=== PATIENT | male | born 1955 | race Caucasian/White ===

== ENCOUNTER → 2020-07-12 00:59 | Outpatient (CLI) | payer BC, SELFPAY ==
[2020-07-13 00:21] LABS: SARS-CoV-2 RNA PCR Negative
== END ==
PROVIDERS: PCP Physician Assistant; Visit Provider Surgery
DX: Z01.812 Encounter for preprocedural laboratory examination (principal); Z20.822 Contact with and (suspected) exposure to COVID-19
CPT/HCPCS: C9803; U0003; U0005

== ENCOUNTER 2020-07-14 11:29 | Outpatient (CLI) | payer BC, SELFPAY ==
--- NOTE | 2020-07-14 11:30 | ECG_ITS ---
Measurements Intervals Premium Rate: 53 P: 63 ND: 179 QRS: 66 QRSD: 105 T: 30 QT: 397 QTc: 376 Interpretive Statements SINUS BRADYCARDIA DELAYED PRECORDIAL R/S TRANSITION MINIMAL Q WAVES- INFERIOR LEADS BASELINE ARTIFACT- I, II, AVR, AVL, AVF, V3-V4, V6 BORDERLINE ECG Electronically Signed On 07-14-2020 11:53:32 NEW BUSINESS CLERK by Meir Bates D.O.
== END 2020-07-14 11:30 | disposition home or self-care (01) ==
LOC: ANHSURGERY 11:30
PROVIDERS: PCP Physician Assistant; Visit Provider Surgery
DX: Z01.818 Encounter for other preprocedural examination (principal); K40.90 Unilateral inguinal hernia, without obstruction or gangrene, not specified as recurrent; I10 Essential (primary) hypertension
CPT/HCPCS: 36415; 86850; 86900; 86901; 93005

== ENCOUNTER 2020-07-16 00:22 | Day surgery (SDC) | payer BC, SELFPAY ==
[2020-07-11 17:28] VITALS: BMI 22.3
--- NOTE | 2020-07-15 13:18 | WPDANESEPPF ---
Anes - Initial Pre Proc Eval Procedure: Operation Date: 07/16/20 07:30 Proposed Procedures p Laparoscopic Right Inguinal Hernia Repair With Mesh, Davinci Assisted - Rc Santa DO s Umbilical Hernia Repair - Rc Santa DO Date/Time: 07/15/20 13:18 Surgeon: Rc Santa DO Pre Op Diagnosis: Right Inguinal Hernia, Umbilical Hernia Patient Data Age: 65 Gender: M Height: 5 ft 11 in Weight: 72.57 kg Allergies Allergy/AdvReac Type Severity Reaction Status Date / Time No Known Allergies Allergy Verified 07/16/20 06:46 Home Medications Medication Instructions Recorded Confirmed Type lisinopril 20 mg tablet 20 mg PO DAILY #90 tablet 04/21/20 07/16/20 Rx Patient hx anesthesia problems: none Family hx anesthesia problems: none PMFSH Past Medical History Medical History Colon polyps Fatty liver Hypertension Prediabetes Skin lesion (~02/17/16) left shoulder- Surgical History Surgical History Hx of colonoscopy 04/2017- every 5 years Family History Family History Mother Hypertension Pancreatic cancer Father Non-Hodgkin lymphoma Social History Social History Smoking status: Never smoker Second hand tobacco smoke exposure: No Additional smoking assessment comments: smoke around patient 10 years ago Alcohol intake: current Substance use: never Substance use type: does not use Living arrangements: with family Additional occupation/education comments: [employer] Gender identity (if verbalized by the patient): Male Spiritual care concerns: No Anes - Eval Final PreProcedure Day of Procedure 07/15/20 13:18 Patient weight: normal Lungs: clear to auscultation Airway: Mallampati scale class II Neurological: alert and oriented Last oral intake: >/= 8 hours ASA classification: III Emergent: no Anesthetic plan: proceed Anesthesia type and monitoring: general ETT and standard monitoring Informed Consent: The patient's anesthetic plan and its attendant risks and benefits were discussed with the patient/family/POA. Questions were solicited and answers provided to the satisfaction of the patient/family/POA.
[2020-07-16] VITALS (10 sets, daily range): BP systolic 116–150; BP diastolic 68–91; PULSE 55–78; RESP 7–20; TEMP 36.3; O2SAT 98–100
[2020-07-16] MEDS: KETOROLAC 15 MG/ML VIAL (*BKC) IV PUSH (06:25)
[2020-07-16] MEDS: LACTATED RINGERS 1,000 ML 30 ML IV CONT ×2 (06:25→09:15)
[2020-07-16] MEDS: ACETAMINOPHEN 500 MG TABLET 1000 MG PO (06:30)
--- NOTE | 2020-07-16 07:13 | PM.IMHP ---
H&P: HPI History of Present Illness Date/Time: 07/16/20 07:13 Chief Complaint: RIH, umbilical hernia Narrative: Jhon Almanza is a 65 year old male presents for right inguinal and umbilical hernia repairs. No change since last seen in office. Review of Systems Review of Systems: All systems reviewed & are unremarkable except as noted in HPI and below Constitutional: Constitutional: Denies chills, Denies fever(s), Denies headache(s) and Denies weight loss Eyes: Eyes: Denies change in vision ENT: Denies dizziness, Denies headache(s), Denies neck mass and Denies throat swelling Cardiovascular: Cardiovascular: Denies chest pain, Denies lightheadedness and Denies dyspnea Respiratory: Respiratory: Denies cough, Denies dyspnea and Denies wheezing Gastrointestinal: Gastrointestinal: Denies abdominal pain, Denies change in bowel habits, Denies nausea and Denies vomiting Genitourinary: Genitourinary: Denies hematuria and Denies dysuria Musculoskeletal: Musculoskeletal: Reports as per HPI Integumentary/Breasts: Skin/Breast: Reports as per HPI Neurologic: Denies dizziness and Denies headache(s) Allergic/Immunologic: Allergic/Immunologic: Denies throat swelling and Denies wheezing PMFSH Past Medical History Medical History Colon polyps Fatty liver Hypertension Prediabetes Skin lesion (~02/17/16) left shoulder- Surgical History Surgical History Hx of colonoscopy 04/2017- every 5 years Family History Family History Mother Hypertension Pancreatic cancer Father Non-Hodgkin lymphoma Social History Social History Smoking status: Never smoker Second hand tobacco smoke exposure: No Additional smoking assessment comments: smoke around patient 10 years ago Alcohol intake: current Substance use: never Substance use type: does not use Living arrangements: with family Additional occupation/education comments: [employer] Gender identity (if verbalized by the patient): Male Spiritual care concerns: No Meds Home Medications and Allergies Home Medications Medication Instructions Recorded Confirmed Type lisinopril 20 mg tablet 20 mg PO DAILY #90 tablet 04/21/20 07/16/20 Rx Allergies Allergy/AdvReac Type Severity Reaction Status Date / Time No Known Allergies Allergy Verified 07/16/20 06:46 Vital Signs Vital Signs - 24 hr 07/16/20 06:47 Pulse Rate 61 Respiratory Rate 18 Blood Pressure 130/75 Pulse Oximetry 100 Exam Const: General: no acute distress and alert Orientation/consciousness: patient oriented x3 HENMT: Head: normocephalic and atraumatic Ears: hearing grossly normal bilaterally General nose exam: Normal nares present Mouth: Yes Normal oral and palatal mucosa present Eyes: Periorbital: periorbital findings normal Sclera: sclerae normal EOM: EOMs intact bilaterally Neck: Neck: normal visual inspection, no lymphadenopathy and trachea midline Chest: Chest palpation & inspection: normal inspection of the chest Resp: Effort & Inspection: normal respiratory effort Auscultation: clear to auscultation bilaterally Cardio: Jugular venous distension: no JVD Rate: regular rate Rhythm: regular rhythm Heart sounds: S1 normal heart sound present and S2 normal heart sound present Peripheral pulses: Peripheral pulses 2+ throughout GI: Inspection: normal to inspection GI Palp: Yes Soft to palpation, No Tenderness to palpation present (GI), No Guarding due to palpation present (GI), Yes Hernia present (umbilical) and No Rebound tenderness present Percussion: Yes normal to percussion Auscultation: normal bowel sounds : General: Yes no CVA tenderness Scrotum: inguinal hernia on the right Back/Spine/Pelvis: Back: no CVA tenderness Christie
--- NOTE | 2020-07-16 07:15 | WPDHPUPDATE1 ---
History and Physical Update Update Date/Time: 07/16/20 07:15 History and Physical has been reviewed, including an updated exam of the patient. There are NO changes in the patient's condition. Risks, benefits, and alternatives have been discussed and questions answered. Patient agrees to proceed with procedure.
[2020-07-16] MEDS: ceFAZolin 2 GM/D5W 50 ML 2 GM/50 ML BAG IVPB (07:25)
[2020-07-16] MEDS: BUPIVACAINE/EPINEPHRINE 0.5% 30 ML VIAL INFILTRATE (07:55)
--- NOTE | 2020-07-16 08:26 | SUR.OPER ---
PROGRIP MESH [id number], EXP 02-03-2023, LOT [id number] RIGHT INGUINAL
--- NOTE | 2020-07-16 09:13 | PM.PROC ---
Procedure Note - Detailed Date of procedure: 07/16/20 Pre-op diagnosis: Right Inguinal Hernia, Umbilical Hernia Post-op diagnosis: same (Indirect RIH, umbilical hernia) Procedure performed: Laparoscopic right inguinal hernia repair with Progrip mesh, da Lupe assisted Description of procedure: Procedure as well as risks, benefits, and alternatives were discussed with the patient. Written consent was obtained and placed in chart prior to procedure. Patient was brought back to surgical suite. He was placed supine on operating table. Time-out was done to confirm patient and procedure. He was then intubated by Anesthesia Department. His abdomen was prepped and draped in sterile fashion using chlorhexidine prep. 0.5% bupivacaine with epinephrine was infiltrated at each location for incision. A 12 millimeter transverse incision was made just superior to the umbilicus using a 15 blade scalpel. Blunt dissection was carried out down to the linea alba. Hernia sac was identified and carefully dissected free and excised. The preperitoneal fat within the hernia sac was also excised and discarded. This allowed us to enter into the peritoneal cavity through the umbilical hernia. A 12 millimeter trocar was inserted and carbon dioxide insufflation was used to create a pneumoperitoneum. A camera was inserted and the abdominal cavity was inspected. The patient was placed in slight Trendelenburg position. An 8 millimeter incision was made on the right lateral abdomen and an 8 millimeter trocar was inserted under direct visualization. Another 8 millimeter incision was made in the left lateral abdomen and an 8 millimeter trocar was inserted under direct visualization. The robotic arms were brought up to the patient's bedside and secured to the ports. The camera and instruments were inserted. I then moved over to the robotic console and took control of the camera and instruments. After careful inspection of the abdominal cavity, I began scoring the peritoneum along the right lower quadrant using scissors with electrocautery. The preperitoneal plane was entered and this was carefully dissected caudally along the inferior epigastric vessels. Careful dissection with scissors with electrocautery and blunt dissection was used to continue this dissection. I dissected far enough laterally to allow for mesh placement, and also dissected medially to identify the pubic arch and Jacques's ligament. The hernia sac was identified and carefully dissected posteriorly. The cord contents were also identified and the peritoneum was carefully dissected far enough posteriorly to allow for mesh placement. Once an adequate pocket was created, I then placed the mesh within the preperitoneal pocket and carefully unfolded it. The mesh was centered on the hernia defect with adequate overlap circumferentially. The inferior edge of the mesh was inspected to ensure that it was far enough away from the peritoneal edge. The mesh appeared in proper position overlying the entire myopectineal orifice. The peritoneum was then closed over the mesh using a 3-0 V-lock running absorbable suture. The robotic instruments were removed. The robotic arms were disengaged from the ports and moved away from the bedside. The patient was flattened out in bed, the ports were removed under direct visualization, and the pneumoperitoneum was released. The fascia of the umbilical hernia was then reapproximated using 0 Ethibond [id number] sutures. A total of 3 sutures were placed transversely and tied down. The repair was inspected and appeared secure. The skin of the incisions was approximated using 4-0 Monocryl subcuticular suture, and Exofin glue was applied on top. The patient was awakened from anesthesia, extubated, and transferred to recovery. Implants: Progrip Mesh 10cm x 15cm Anesthesia: GETA and local (0.5% bupivicaine with epi) Surgeon: Rc Santa DO Estimated blood loss (mL): 5 Drains: No Pac
--- NOTE | 2020-07-16 12:42 | SUR.PHASEII ---
Patient is dressed and waiting for ride at this time.
== END 2020-07-16 12:50 | disposition home or self-care (01) ==
PROVIDERS: PCP Physician Assistant; Visit Provider Surgery
PROC: 8E0Y4CZ Robotic Assisted Procedure of Lower Extremity, Percutaneous Endoscopic Approach (ICD-10-PCS; CPT 49650; principal; 2020-07-16 07:30)
PROC: (CPT 49650; 2020-07-16 07:30)
DX: K40.90 Unilateral inguinal hernia, without obstruction or gangrene, not specified as recurrent (principal); K42.9 Umbilical hernia without obstruction or gangrene; I10 Essential (primary) hypertension; K76.0 Fatty (change of) liver, not elsewhere classified; R73.03 Prediabetes
CPT/HCPCS: 49650; S2900; A9270; C1781; J0690; J1100; J1170; J1885; J2250; J2405; J2704; J2710; J3010; J7030; J7120

== ENCOUNTER → 2021-07-30 10:30 | Outpatient (CLI) | payer MEDICARE, SELFPAY ==
--- NOTE | ~2021-07-30 | XR_ITS ---
XR foot RT min 3V DATE: 07/30/2021 10:58 INDICATION: Right foot pain, plantar aspect, proximal fourth toe. No injury TECHNIQUE: 4 views COMPARISON: None FINDINGS: There is severe osteoarthritic change and prominent spurring at the first metatarsophalange al joint. No fracture, dislocation, periosteal reaction or bone destruction. Anterior and posterior tibial artery calcifications. 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 ER OPERATOR AUTOMATIC
--- NOTE | ~2021-07-30 | XR_ITS ---
XR hand LT min 3V DATE: 07/30/2021 10:58 INDICATION: Left hand pain. Third digit injury one year ago. TECHNIQUE: 4 views COMPARISON: None FINDINGS: There is prominent osteophytic change at the second and third metacarpophalangeal joints. There is osteoarthritic changes of the interphalangeal joints. No fracture, dislocation, periosteal reaction or bone destruction. Prominent arterial calcification of the distal forearm. IMPRESSION: Polyarticular osteoarthritis. Reviewed, dictated and finalized at location A. RUCTIONAL DESIGN SPECIALIST
== END ==
PROVIDERS: PCP Family Medicine; Visit Provider Family Medicine
DX: M79.671 Pain in right foot (principal); M79.642 Pain in left hand; M19.071 Primary osteoarthritis, right ankle and foot; I70.208 Unspecified atherosclerosis of native arteries of extremities, other extremity; M19.042 Primary osteoarthritis, left hand
CPT/HCPCS: 73130; 73630

== ENCOUNTER 2022-08-09 08:10 | Outpatient (CLI) | payer MEDICARE, SELFPAY ==
[2022-08-09 20:45] LABS: Alanine Aminotransferase 71 U/L (6-50); Albumin Level 3.9 g/dL (3.5-5.1); Alkaline Phosphatase 50 U/L (38-126); Anion Gap 7 mmol/L (8-16); Aspartate Amino Transferase 57 U/L (17-59); Bilirubin,Total 0.9 mg/dL (0.2-1.3); Blood Urea Nitrogen 14 mg/dL (9-20); Calcium 8.2 mg/dL (8.4-10.2); Carbon Dioxide 27 mmol/L (22-30); Chloride 99 mmol/L (98-107); Cholesterol 141 mg/dL (0-200); Estimated Glomerular Filt Rate > 60; Glucose 94 mg/dL (65-110); HDL Direct 99 mg/dL; Potassium 3.9 mmol/L (3.4-5.0); Sodium 133 mmol/L (137-145); Triglycerides < 30 mg/dL (<150)
[2022-08-09 21:00] LABS: Hemoglobin A1C 5.9 % (<5.7)
[2022-08-09 21:14] LABS: Prostate Specific Antigen 1.2 ng/mL (< OR = 4.0)
[2022-08-09 21:58] LABS: LDL Cholesterol Direct < 30 mg/dL
== END 2022-08-09 08:11 | disposition home or self-care (01) ==
LOC: ANHGOSHLAB 08:11
PROVIDERS: PCP Family Medicine; Visit Provider Family Medicine
DX: R73.03 Prediabetes (principal); I10 Essential (primary) hypertension; Z13.220 Encounter for screening for lipoid disorders; Z12.5 Encounter for screening for malignant neoplasm of prostate; Z13.228 Encounter for screening for other metabolic disorders
CPT/HCPCS: 36415; 80053; 80061; 83036; 84153; G0103

== ENCOUNTER 2023-05-23 06:28 | Day surgery (SDC) | payer MEDICARE, SELFPAY ==
--- NOTE | 2023-05-20 14:56 | PM.HPGS ---
History of Present Illness History of Present Illness Consent: Risks, benefits, and alternatives have been discussed and questions answered. Patient agrees to proceed with procedure. Chief complaint: History of Colon Polyps Narrative: Jhon Almanza is a 68 year old male Here for colon cancer screening. He has had polyps removed at time his last 2 procedures, most recently 6 years ago. Review of Systems Review of Systems: All systems reviewed & are unremarkable except as noted in HPI and below PMFSH Past Medical History Medical History Colon polyps Fatty liver Hypertension Prediabetes Skin lesion (~02/17/16) left shoulder- Surgical History Surgical History H/O inguinal hernia repair 07/16/20 Laparoscopic right inguinal hernia repair with Progrip mesh, da Lupe assisted Hx of colonoscopy 04/2017- every 5 years Family History Family History Mother Hypertension Pancreatic cancer Thyroid disorder Father Non-Hodgkin lymphoma Sibling Diabetes mellitus Hypertension Thyroid disorder Social History Social History Smoking status: Never smoker Second hand tobacco smoke exposure: No Additional smoking assessment comments: smoke around patient 10 years ago Alcohol intake: current Drinks per week: 21 Alcohol use details: 3 beers daily Substance use: never Substance use type: does not use Lack of Transportation: No Lack of Food: Never True Current Housing: I Have Housing Concerned About Future Housing: No Difficulty Paying Gas/Electric Bills: No Difficulty Paying for Meds: No Currently Unemployed: No Education: Bachelor's Degree Difficulty w/ Childcare or Family Care: No Living arrangements: with family Occupation/Education: retired Additional occupation/education comments: [employer] Gender identity (if verbalized by the patient): Male Sexual Orientation (if Verbalized by the Patient): Straight or Heterosexual Spiritual care concerns: No Meds Home Medications and Allergies Home Medications Medication Instructions Recorded Confirmed Type metronidazole 0.75 % topical gel 1 applic topical DAILY 08/06/22 05/04/23 History lisinopril 20 mg tablet 20 mg PO DAILY #90 tabs 04/07/23 05/23/23 Rx Allergies Allergy/AdvReac Type Severity Reaction Status Date / Time No Known Allergies Allergy Verified 05/23/23 07:07 Exam Resp: Auscultation: clear to auscultation bilaterally Cardio: Rate: regular rate Rhythm: regular rhythm GI: GI Palp: Yes Soft to palpation and No Tenderness to palpation present (GI) Assessment and Plan Assessment and plan (1) Colon cancer screening: Code(s): Z12.11 - Encounter for screening for malignant neoplasm of colon Status: Acute Assessment and Plan: Colonoscopy with possible biopsy or polypectomy or cautery or injection of substances.
--- NOTE | 2023-05-23 06:44 | P.PNAN_ITS ---
Anes - Initial Pre Proc Eval Procedure: Operation Date: 05/23/23 08:30 Proposed Procedures p Colonoscopy - Willie Bacon MD Date/Time: 05/23/23 06:44 Surgeon: Willie Bacon MD Pre Op Diagnosis: History of Colon Polyps Patient Data Age: 68 Gender: M Height: 1.8 m Weight: 75.2 kg Allergies Allergy/AdvReac Type Severity Reaction Status Date / Time No Known Allergies Allergy Verified 05/23/23 07:07 Home Medications Medication Instructions Recorded Confirmed Type metronidazole 0.75 % topical gel 1 applic topical DAILY 08/06/22 05/04/23 History lisinopril 20 mg tablet 20 mg PO DAILY #90 tabs 04/07/23 05/23/23 Rx Patient hx anesthesia problems: none Family hx anesthesia problems: none Results Review: All pre-operative results and documents have been reviewed as part of the pre- operative evaluation. [facility] Past Medical History Medical History Colon polyps Fatty liver Hypertension Prediabetes Skin lesion (~02/17/16) left shoulder- Surgical History Surgical History H/O inguinal hernia repair 07/16/20 Laparoscopic right inguinal hernia repair with Progrip mesh, da Lupe assisted Hx of colonoscopy 04/2017- every 5 years Family History Family History Mother Hypertension Pancreatic cancer Thyroid disorder Father Non-Hodgkin lymphoma Sibling Diabetes mellitus Hypertension Thyroid disorder Social History Social History Smoking status: Never smoker Second hand tobacco smoke exposure: No Additional smoking assessment comments: smoke around patient 10 years ago Alcohol intake: current Drinks per week: 21 Alcohol use details: 3 beers daily Substance use: never Substance use type: does not use Lack of Transportation: No Lack of Food: Never True Current Housing: I Have Housing Concerned About Future Housing: No Difficulty Paying Gas/Electric Bills: No Difficulty Paying for Meds: No Currently Unemployed: No Education: Bachelor's Degree Difficulty w/ Childcare or Family Care: No Living arrangements: with family Occupation/Education: retired Additional occupation/education comments: [employer] Gender identity (if verbalized by the patient): Male Sexual Orientation (if Verbalized by the Patient): Straight or Heterosexual Spiritual care concerns: No Anes - Eval Final PreProcedure Day of Procedure 05/23/23 06:44 Patient weight: normal Heart: regular rate and rhythm Lungs: clear to auscultation and normal air movement Airway: Mallampati scale class II Neurological: alert and oriented Last oral intake: >/= 8 hours ASA classification: III Emergent: no Anesthetic plan: proceed Anesthesia type and monitoring: general GIVS and standard monitoring Results Review: All pre-operative results and documents have been reviewed as part of the pre- operative evaluation. Informed Consent: The patient's anesthetic plan and its attendant risks and benefits were discussed with the patient/family/POA. Questions were solicited and answers provided to the satisfaction of the patient/family/POA.
[2023-05-23 07:08] VITALS: BP 140/78; PULSE 71; RESP 16; TEMP 37.1; O2SAT 100; BMI 23.6
[2023-05-23] MEDS: LACTATED RINGERS 1,000 ML 150 ML IV CONT (07:20)
[2023-05-23 08:38] VITALS: BP 108/74; PULSE 60; RESP 16; O2SAT 98
[2023-05-23 08:48] VITALS: BP 115/72; PULSE 74; RESP 18; O2SAT 99
[2023-05-23 08:58] VITALS: BP 125/60; PULSE 69; RESP 18; O2SAT 99
--- NOTE | 2023-05-23 11:13 | WPDANESPN ---
Anes - Prog Note Post-Op Date/Time: 05/23/23 11:13 Cardiovascular status: normal Respiratory status: normal Airway patency: baseline Mental status: baseline Post-Op hydration status: normal Vital Signs: Last Vital Signs Temp 37.1 C 05/23/23 07:08 Pulse 69 05/23/23 08:58 Resp 18 05/23/23 08:58 BP 125/60 05/23/23 08:58 Pulse Ox 99 05/23/23 08:58 O2 Del Method Room Air 05/23/23 08:58 Pain Score (VAS): 0 I/O: Intake & Output 05/22/23 05/23/23 05/23/23 23:59 07:59 15:59 Intake Total 400 Balance 400 Post-procedural complaints: none Patient Feedback: Patient satisfied with anesthetic care. Other Findings: Patient vital signs back to baseline. Patient denies nausea and vomiting. Patient's pain under control. Patient OK for discharge.
== END 2023-05-23 09:11 | disposition home or self-care (01) ==
PROVIDERS: PCP Family Medicine; Visit Provider Internal Medicine Gastroenterology
PROC: 0DJD8ZZ Inspection of Lower Intestinal Tract, Via Natural or Artificial Opening Endoscopic (ICD-10-PCS; CPT 45378; principal; 2023-05-23 08:30)
DX: Z12.11 Encounter for screening for malignant neoplasm of colon (principal); D12.5 Benign neoplasm of sigmoid colon; D12.4 Benign neoplasm of descending colon; K57.30 Diverticulosis of large intestine without perforation or abscess without bleeding; K62.1 Rectal polyp
CPT/HCPCS: 45385; 45380

== ENCOUNTER 2023-05-23 07:00 | Outpatient (NON) | payer MEDICARE, SELFPAY | END 2023-05-23 07:01 | disposition home or self-care (01) | PROVIDERS: PCP Family Medicine; Visit Provider Internal Medicine Gastroenterology | DX: Z12.11 Encounter for screening for malignant neoplasm of colon (principal); D12.5 Benign neoplasm of sigmoid colon; D12.4 Benign neoplasm of descending colon; K62.1 Rectal polyp | CPT/HCPCS: 88305 ==

== ENCOUNTER 2023-08-12 10:01 | Outpatient (CLI) | payer MEDICARE, SELFPAY ==
[2023-08-12 13:07] LABS: Alanine Aminotransferase 81 U/L (6-50); Albumin Level 3.7 g/dL (3.5-5.1); Alkaline Phosphatase 46 U/L (38-126); Anion Gap 1 mmol/L (8-16); Aspartate Amino Transferase 75 U/L (17-59); Blood Urea Nitrogen 12 mg/dL (9-20); Calcium 8.8 mg/dL (8.4-10.2); Carbon Dioxide 32 mmol/L (22-30); Chloride 101 mmol/L (98-107); Cholesterol 139 mg/dL (0-200); Estimated Glomerular Filt Rate > 60; Glucose 129 mg/dL (65-110); HDL Direct 103 mg/dL; Potassium 4.2 mmol/L (3.4-5.0); Sodium 134 mmol/L (137-145); Triglycerides < 30 mg/dL (<150)
[2023-08-12 13:18] LABS: LDL Cholesterol Direct 36 mg/dL
[2023-08-12 13:31] LABS: Prostate Specific Antigen 1.5 ng/mL (< OR = 4.0)
[2023-08-12 14:03] LABS: Hemoglobin A1C 6.5 % (<5.7)
== END 2023-08-12 10:02 | disposition home or self-care (01) ==
LOC: ANHGOSHLAB 10:02
PROVIDERS: PCP Family Medicine; Visit Provider Family Medicine
DX: Z12.5 Encounter for screening for malignant neoplasm of prostate (principal); I10 Essential (primary) hypertension; R73.03 Prediabetes; Z13.220 Encounter for screening for lipoid disorders; Z13.228 Encounter for screening for other metabolic disorders
CPT/HCPCS: 36415; 80053; 80061; 83036; 84153; G0103

== ENCOUNTER 2023-11-14 08:11 | Outpatient (CLI) | payer MEDICARE, SELFPAY ==
[2023-11-14 17:07] LABS: Alanine Aminotransferase 58 U/L (6-50); Albumin Level 3.4 g/dL (3.5-5.1); Alkaline Phosphatase 43 U/L (38-126); Anion Gap 3 mmol/L (4-12); Aspartate Amino Transferase 64 U/L (17-59); Bilirubin,Total 0.8 mg/dL (0.2-1.3); Blood Urea Nitrogen 17 mg/dL (9-20); Calcium 8.6 mg/dL (8.4-10.2); Carbon Dioxide 27 mmol/L (22-30); Chloride 105 mmol/L (98-107); Estimated Glomerular Filt Rate > 60; Glucose 89 mg/dL (65-110); Potassium 4.1 mmol/L (3.4-5.0); Sodium 135 mmol/L (137-145)
[2023-11-14 21:13] LABS: Hemoglobin A1C 5.6 % (<5.7)
== END 2023-11-14 08:12 | disposition home or self-care (01) ==
LOC: ANHGOSHLAB 08:12
PROVIDERS: PCP Family Medicine; Visit Provider Family Medicine
DX: E11.9 Type 2 diabetes mellitus without complications (principal); Z13.228 Encounter for screening for other metabolic disorders
CPT/HCPCS: 36415; 80053; 83036

== ENCOUNTER 2024-03-01 08:11 | Outpatient (CLI) | payer MEDICARE, SELFPAY ==
[2024-03-01 16:46] LABS: Alanine Aminotransferase 57 U/L (6-50); Albumin Level 3.7 g/dL (3.5-5.1); Alkaline Phosphatase 39 U/L (38-126); Anion Gap 5 mmol/L (4-12); Aspartate Amino Transferase 63 U/L (17-59); Blood Urea Nitrogen 14 mg/dL (9-20); Calcium 8.4 mg/dL (8.4-10.2); Carbon Dioxide 29 mmol/L (22-30); Chloride 99 mmol/L (98-107); Estimated Glomerular Filt Rate > 60; Glucose 100 mg/dL (65-110); Potassium 3.9 mmol/L (3.4-5.0); Sodium 133 mmol/L (137-145)
== END 2024-03-01 08:12 | disposition home or self-care (01) ==
LOC: ANHGOSHLAB 08:12
PROVIDERS: PCP Family Medicine; Visit Provider Family Medicine
DX: K76.0 Fatty (change of) liver, not elsewhere classified (principal); I10 Essential (primary) hypertension; Z13.228 Encounter for screening for other metabolic disorders
CPT/HCPCS: 36415; 80053

== ENCOUNTER 2024-03-09 08:45 | Outpatient (CLI) | payer MEDICARE, SELFPAY ==
--- NOTE | ~2024-03-09 | US_ITS ---
Limited Abdominal Sonogram: Real-time sonographic imaging of the right upper quadrant was performed. Clinical History: Fatty liver Findings: The liver appears normal with no evidence of mass lesion or bile duct dilatation. Main por margarito vein demonstrates normal direction of flow. The gallbladder is well distended, and contains small amount of sludge. The common bile duct measures 4 mm. The visualized pancreas, aorta, and IVC are u nremarkable. Impression: Small amount of gallbladder sludge. Reviewed, dictated and finalized at location M. Impression: Small amount of gallbladder sludge.
== END 2024-03-09 08:46 | disposition home or self-care (01) ==
LOC: GOSHIMG 08:46
PROVIDERS: PCP Family Medicine; Visit Provider Family Medicine
DX: K76.0 Fatty (change of) liver, not elsewhere classified (principal)
CPT/HCPCS: 76705

== ENCOUNTER 2024-09-03 08:17 | Outpatient (CLI) | payer MEDICARE, SELFPAY ==
[2024-09-03 13:42] LABS: Basophils Percent Auto 0.5 % (0.2-1.2); Eosinophils Absolute Auto 0.2 K/mm3 (0-0.3); Eosinophils Percent Auto 2.9 % (0-4.4); Hematocrit 46.1 % (42.0-52.0); Hemoglobin 15.8 g/dL (14.0-18.0); Immature Granulocyte Absolute 0.02 K/mm3 (0.00-0.031); Immature Granulocyte Percent A 0.3 % (0-0.5); Lymphocytes Absolute Auto 0.65 K/mm3 (0.9-3.2); Lymphocytes Percent Auto 11.1 % (18.3-44.2); Mean Corpuscular HGB Conc 34.3 g/dl (32-36); Mean Corpuscular Hemoglobin 30.1 pg (26-34); Mean Corpuscular Volume 87.8 fl (80-100); Monocytes Absolute Auto 0.6 K/mm3 (0.1-0.6); Monocytes Percent Auto 9.4 % (2.6-8.5); Neutrophils Absolute Auto 4.5 K/mm3 (1.3-6.7); Neutrophils Percent Auto 75.8 % (45.5-73.1); Platelet Count Result 197 k/mm3 (150-375); Red Blood Count 5.25 M/mm3 (4.6-6.20); Red Cell Distribution Width 13.7 % (11.5-14.5); White Blood Count 5.9 K/mm3 (4.5-10.0)
[2024-09-03 14:31] LABS: Alanine Aminotransferase 66 U/L (6-50); Albumin Level 3.5 g/dL (3.5-5.1); Alkaline Phosphatase 44 U/L (38-126); Anion Gap 5 mmol/L (4-12); Aspartate Amino Transferase 58 U/L (17-59); Bilirubin,Total 0.6 mg/dL (0.2-1.3); Blood Urea Nitrogen 17 mg/dL (9-20); Calcium 8.4 mg/dL (8.4-10.2); Carbon Dioxide 29 mmol/L (22-30); Chloride 102 mmol/L (98-107); Cholesterol 126 mg/dL (0-200); Estimated Glomerular Filt Rate > 60; Glucose 123 mg/dL (65-110); HDL Direct 87 mg/dL; Potassium 4.3 mmol/L (3.4-5.0); Sodium 136 mmol/L (137-145); Triglycerides < 30 mg/dL (<150)
[2024-09-03 15:05] LABS: Prostate Specific Antigen 1.2 ng/mL (< OR = 4.0)
[2024-09-03 15:09] LABS: Hemoglobin A1C 6.2 % (<5.7)
[2024-09-03 17:03] LABS: LDL Cholesterol Direct < 30 mg/dL
== END 2024-09-03 08:18 | disposition home or self-care (01) ==
LOC: ANHGOSHLAB 08:18
PROVIDERS: PCP Family Medicine; Visit Provider Nurse Practitioner Family
DX: R73.03 Prediabetes (principal); I10 Essential (primary) hypertension; K76.0 Fatty (change of) liver, not elsewhere classified; Z72.89 Other problems related to lifestyle; R73.01 Impaired fasting glucose; Z12.5 Encounter for screening for malignant neoplasm of prostate
CPT/HCPCS: 36415; 80053; 80061; 83036; 84153; 84443; 85025; G0103

== ENCOUNTER 2025-03-07 08:52 | Outpatient (CLI) | payer MEDICARE, SELFPAY ==
[2025-03-07 13:16] LABS: Alanine Aminotransferase 48 U/L (6-50); Albumin Level 3.5 g/dL (3.5-5.1); Alkaline Phosphatase 45 U/L (38-126); Anion Gap 4 mmol/L (4-12); Aspartate Amino Transferase 42 U/L (17-59); Bilirubin,Total 0.6 mg/dL (0.2-1.3); Blood Urea Nitrogen 16 mg/dL (9-20); Calcium 8.3 mg/dL (8.4-10.2); Carbon Dioxide 28 mmol/L (22-30); Chloride 103 mmol/L (98-107); Estimated Glomerular Filt Rate > 60; Glucose 110 mg/dL (65-110); Potassium 4.2 mmol/L (3.4-5.0); Sodium 135 mmol/L (137-145); Total Protein 5.7 g/dL (6.3-8.2)
[2025-03-07 15:53] LABS: Hemoglobin A1C 6.1 % (<5.7)
== END 2025-03-07 08:53 | disposition home or self-care (01) ==
LOC: ANHGOSHLAB 08:53
PROVIDERS: PCP Family Medicine; Visit Provider Family Medicine
DX: R73.03 Prediabetes (principal); K76.0 Fatty (change of) liver, not elsewhere classified
CPT/HCPCS: 36415; 80053; 83036